=== PATIENT | male | born 1970 | race Hispanic/Latino ===

== ENCOUNTER 2022-02-16 15:06 | Emergency (ER) | payer SELFPAY ==
[2022-02-16] MEDS ORDERED: NA CHLORIDE 0.9% 1,000 ML ONE (15:30)
[2022-02-16] MEDS ORDERED: HYDROMORPHONE HCL 2 MG/ML inj ONE (15:30)
[2022-02-16] MEDS ORDERED: FAMOTIDINE 20 MG/2 ML VIAL IV ONE (15:30)
[2022-02-16] MEDS ORDERED: ONDANSETRON 4 MG/2 ML VIAL ONE (15:30)
[2022-02-16] MEDS ORDERED: PIPERACIL/TAZO 3.375 GM VIAL IV ONE (15:30)
[2022-02-16] MEDS ORDERED: NA CHLORIDE 0.9% 100 ML IV ONE (15:31)
[2022-02-16 15:45] LABS: Absolute Lymphocytes (CBC) 1.3 K/uL (0.7-4.9); Hematocrit 54.4 % (39.6-49.0); Lymphocytes % 22.5 % (15.3-44.8); MPV 8.7 fL (7.6-11.3); RBC Red Blood Cell Count 6.79 M/uL (4.33-5.43)
[2022-02-16 15:55] LABS: Albumin 3.6 g/dL (3.4-5.0); Bilirubin Total 0.5 mg/dL (0.2-1.0); Potassium 4.4 mmol/L (3.5-5.1); Protein, Total 7.5 g/dL (6.4-8.2)
--- NOTE | 2022-02-16 16:04 | RAD REPORT ---
EXAM DESCRIPTION: CT - Abdomen Pelvis Wo Contrast - 02/16/2022 3:48 pm CLINICAL HISTORY: Abdominal pain COMPARISON: None TECHNIQUE: Computed axial tomography of the abdomen and pelvis was obtained. IV and oral contrast we re not requested. All CT scans are performed using dose optimization technique as appropriate and may include automated exposure control or mA/KV adjustment according to patient size. FINDINGS: The evaluation of solid organs, vessels and bowel is limited secondary to the lack of con trast administration. The liver, spleen, pancreas, adrenals, bladder and kidneys appear grossly normal. The appendix is normal. There is no evidence of diverticulitis. A loop of small bowel enters a periumbilical hernia. There is mild to moderate dilatation of several loops of small bowel proximal to the hernia. Small bowel is decompressed distal to the hernia. The he rnia neck measures 16 millimeters IMPRESSION: Periumbilical hernia resulting in a partial small bowel obstruction
--- NOTE | 2022-02-16 16:07 | ER ---
Nurse's Notes [facility] Name: Carter Terrazas Age: 51 yrs Sex: Male : 1970 Arrival Date: 02/16/2022 Time: 15:07 Bed 2 Private MD: Diagnosis: Umbilical hernia without obstruction or gangrene-reduced Presentation: 02/16 15:10 Chief complaint: Chief complaint: EMS states: This morning pt was standing on a stool vg1 and the stool slipped from under pt and pt fell onto ABD against the truck tailgate; pt has a hx of umbilical hernia and ABD pain has become worse throughout the day. Pt states nausea. Coronavirus screen: Vaccine status: Patient reports being unvaccinated. Client denies travel out of the [place] in the last 14 days. Ebola Screen: Patient negative for fever greater than or equal to 101.5 degrees Fahrenheit, and additional compatible Ebola Virus Disease symptoms. Initial Sepsis Screen: Does the patient meet any 2 criteria? No. Patient's initial sepsis screen is negative. Does the patient have a suspected source of infection? No. Patient's initial sepsis screen is negative. Risk Assessment: Do you want to hurt yourself or someone else? Patient reports no desire to harm self or others. Onset of symptoms was February 16, 2022. 15:10 Method Of Arrival: EMS: [facility] vg1 15:10 Acuity: JENNYFER 3 vg1 Triage Assessment: 15:13 General: Appears uncomfortable, Behavior is calm, cooperative. Pain: Complains of pain vg1 in umbilical area, right lower quadrant and left lower quadrant Pain currently is 10 out of 10 on a pain scale. Pain began this morning. EENT: No signs and/or symptoms were reported regarding the EENT system. Neuro: Level of Consciousness is awake, alert, obeys commands, Oriented to person, place, time, situation. Cardiovascular: Patient's skin is warm and dry. Respiratory: Airway is patent Respiratory effort is even, unlabored. GI: Abdomen is round non-distended, Abdomen is tender to palpation in umbilical area, right lower quadrant and left lower quadrant Reports nausea. : No signs and/or symptoms were reported regarding the genitourinary system. Derm: Skin is intact, is healthy with good turgor. Musculoskeletal: Circulation, motion, and sensation intact. Historical: - Allergies: 15:13 Iodine; vg1 15:13 SHELLFISH; vg1 - Home Meds: 15:13 None [Active]; vg1 - PMHx: 15:13 Umbilical hernia; vg1 - PSHx: 15:13 Vasectomy; vg1 - Immunization history:: Client reports having NOT received the Covid vaccine. - Social history:: Smoking status: Patient denies any tobacco usage or history of. Screenin:15 Abuse screen: Denies threats or abuse. Nutritional screening: No deficits noted. vg1 Tuberculosis screening: No symptoms or risk factors identified. Fall Risk Fall in past 12 months (25 points). No secondary diagnosis (0 pts). IV access (20 points). Ambulatory Aid- None/Bed Rest/Nurse Assist (0 pts). Gait- Normal/Bed Rest/Wheelchair (0 pts) Mental Status- Oriented to own ability (0 pts). Total Valenzuela Fall Scale indicates No Risk (0-24 pts). Assessment: 15:15 Reassessment: SEE TRIAGE. vg1 16:15 Reassessment: Patient appears in no apparent distress at this time. Patient and/or vg1 family updated on plan of care and expected duration. Pain level reassessed. Patient is alert, oriented x 3, equal unlabored respirations, skin warm/dry/pink. Pt up for d/c; waiting for IV antibiotics to complete. Vital Signs: 15:10 BP 172 / 118; Pulse 98; Resp 20; Temp 98.1; Pulse Ox 100% ; Weight 127.01 kg; Height 6 vg1 ft. 1 in. (185.42 cm); Pain 10/10; 15:44 BP 162 / 107; Pulse 95; Resp 19; Pulse Ox 99% on R/A; vg1 15:10 Body Mass Index 36.94 (127.01 kg, 185.42 cm) vg1 ED Course: 15:07 Patient arrived in ED. ds1 15:07 Chinmay Cannon MD is Attending Physician. matias 15:09 Patient has correct armband on for positive identification. Bed in low position. Call mh5 light in reach. Side rails up X2. Warm blanket given. Pulse ox on. NIBP on. 15:10 Divya Muñoz RN is Primary Nurse. vg1 15:13 Triage completed. vg1 15:13 Arm band placed on. vg1 15:15 No provider procedures requiring assistance completed. vg1 15:30 Initial lab(s) drawn, by [facility], sent to lab. Inserted saline lock: 18 gauge in right mh5 antecubital area, using aseptic technique. Blood collected. 15:31 CBC with Diff Sent. 5 15:31 CMP Sent. [facility] 15:31 Lipase Sent. 5 15:50 CT Abd/Pelvis - Without Contrast In Process Unspecified. EDPR 16:05 Darren Christy MD is Referral Physician. matias 17:03 IV discontinued, intact, bleeding controlled, No redness/swelling at site. Pressure vg1 dressing applied. Administered Medications: 15:30 Drug: NS 0.9% 1000 ml Route: IV; Rate: 1 bolus; Site: right antecubital; vg1 17:02 Follow up: IV Status: Completed infusion; IV Intake: 1000ml vg1 15:30 Drug: Zofran (Ondansetron) 4 mg Route: IVP; Site: right antecubital; vg1 17:02 Follow up: Response: No adverse reaction; Marked relief of symptoms vg1 15:32 Drug: Pepcid (famotidine) 20 mg Route: IVP; Site: right antecubital; vg1 17:02 Follow up: Response: No adverse reaction vg1 15:34 Drug: Dilaudid (HYDROmorphone) 1 mg Route: IVP; Site: right antecubital; vg1 17:02 Follow up: Response: No adverse reaction; Marked relief of symptoms vg1 15:52 Drug: Dilaudid (HYDROmorphone) 1 mg Route: IVP; Site: right antecubital; vg1 17:02 Follow up: Response: No adverse reaction; Marked relief of symptoms vg1 15:55 Drug: Zosyn (piperacillin-tazobactam) 3.375 grams Route: IVPB; Infused Over: 60 mins; vg1 Site: right antecubital; 17:02 Follow up: IV Status: Completed infusion; IV Intake: 100ml vg1 Intake: 17:02 IV: 100ml; Total: 100ml. vg1 17:02 IV: 1000ml; Total: 1100ml. vg1 Outcome: 16:07 Discharge ordered by . matias 17:03 Discharged to home ambulatory. vg1 17:03 Condition: good 17:03 Discharge instructions given to patient, Instructed on discharge instructions, follow up and referral plans. Demonstrated understanding of instructions, follow-up care. 17:03 Patient left the ED. vg1 Signatures: Dispatcher [employer] Chinmay Light MD MD cha Sanford, Demi ds1 Aliyah Christy Divya Brunson, RN RN vg1 Corrections: (The following items were deleted from the chart) 15:14 15:13 Allergies: No Known Allergies; vg1 vg1 15:14 15:13 PMHx: None; vg1 vg1
--- NOTE | 2022-02-16 16:07 | EDPHYS ---
Physician Documentation [facility] Name: Carter Terrazas Age: 51 yrs Sex: Male : 1970 Arrival Date: 02/16/2022 Time: 15:07 Bed 2 Private MD: ED Physician Chinmay Cannon HPI: 02/16 15:19 This 51 yrs old Male presents to ER via EMS with complaints of Fall Injury. matias 15:19 Details of fall: The patient fell from a height, from a ladder, approximately 1 feet. matias Onset: The symptoms/episode began/occurred just prior to arrival. Associated injuries: The patient sustained injury to the abdomen, specifically the umbilical area. Severity of symptoms: At their worst the symptoms were moderate, in the emergency department the symptoms have resolved. The patient has not experienced similar symptoms in the past. Historical: - Allergies: 15:13 Iodine; vg1 15:13 SHELLFISH; vg1 - Home Meds: 15:13 None [Active]; vg1 - PMHx: 15:13 Umbilical hernia; vg1 - PSHx: 15:13 Vasectomy; vg1 - Immunization history:: Client reports having NOT received the Covid vaccine. - Social history:: Smoking status: Patient denies any tobacco usage or history of. ROS: 15:19 Constitutional: Negative for fever, chills, and weight loss, Eyes: Negative for injury, matias pain, redness, and discharge, ENT: Negative for injury, pain, and discharge, Neck: Negative for injury, pain, and swelling, Cardiovascular: Negative for chest pain, palpitations, and edema, Respiratory: Negative for shortness of breath, cough, wheezing, and pleuritic chest pain, Back: Negative for injury and pain, : Negative for injury, bleeding, discharge, and swelling, MS/Extremity: Negative for injury and deformity, Skin: Negative for injury, rash, and discoloration, Neuro: Negative for headache, weakness, numbness, tingling, and seizure, Psych: Negative for depression, anxiety, suicide ideation, homicidal ideation, and hallucinations, Allergy/Immunology: Negative for hives, rash, and allergies, Endocrine: Negative for neck swelling, polydipsia, polyuria, polyphagia, and marked weight changes, Hematologic/Lymphatic: Negative for swollen nodes, abnormal bleeding, and unusual bruising. 15:19 Abdomen/GI: Positive for abdominal pain, nausea and vomiting, of the umbilical area. Exam: 15:19 Constitutional: This is a well developed, well nourished patient who is awake, alert, matias and in no acute distress. Head/Face: Normocephalic, atraumatic. Eyes: Pupils equal round and reactive to light, extra-ocular motions intact. Lids and lashes normal. Conjunctiva and sclera are non-icteric and not injected. Cornea within normal limits. Periorbital areas with no swelling, redness, or edema. ENT: Nares patent. No nasal discharge, no septal abnormalities noted. Tympanic membranes are normal and external auditory canals are clear. Oropharynx with no redness, swelling, or masses, exudates, or evidence of obstruction, uvula midline. Mucous membranes moist. Neck: Trachea midline, no thyromegaly or masses palpated, and no cervical lymphadenopathy. Supple, full range of motion without nuchal rigidity, or vertebral point tenderness. No Meningismus. Chest/axilla: Normal chest wall appearance and motion. Nontender with no deformity. No lesions are appreciated. Cardiovascular: Regular rate and rhythm with a normal S1 and S2. No gallops, murmurs, or rubs. Normal PMI, no JVD. No pulse deficits. Respiratory: Lungs have equal breath sounds bilaterally, clear to auscultation and percussion. No rales, rhonchi or wheezes noted. No increased work of breathing, no retractions or nasal flaring. Back: No spinal tenderness. No costovertebral tenderness. Full range of motion. Male : Normal genitalia with no discharge or lesions. Skin: Warm, dry with normal turgor. Normal color with no rashes, no lesions, and no evidence of cellulitis. MS/ Extremity: Pulses equal, no cyanosis. Neurovascular intact. Full, normal range of motion. Neuro: Awake and alert, GCS 15, oriented to person, place, time, and situation. Cranial nerves II-XII grossly intact. Motor strength 5/5 in all extremities. Sensory grossly intact. Cerebellar exam normal. Normal gait. Psych: Awake, alert, with orientation to person, place and time. Behavior, mood, and affect are within normal limits. 15:19 Abdomen/GI: Inspection: abdomen appears normal, Bowel sounds: normal, Palpation: moderate abdominal tenderness, in the umbilical area, Liver: no appreciated palpable abnormalities, Hernia: noted in the umbilical area, incarceration, that is moderate, tenderness, that is moderate, that is severe, bowel sounds are appreciated on auscultation. Vital Signs: 15:10 BP 172 / 118; Pulse 98; Resp 20; Temp 98.1; Pulse Ox 100% ; Weight 127.01 kg; Height 6 vg1 ft. 1 in. (185.42 cm); Pain 10/10; 15:44 BP 162 / 107; Pulse 95; Resp 19; Pulse Ox 99% on R/A; vg1 15:10 Body Mass Index 36.94 (127.01 kg, 185.42 cm) vg1 MDM: 15:07 Patient medically screened. [facility] 15:21 Differential diagnosis: multiple trauma, sprain, strain. Differential diagnosis: bowel matias obstruction, diverticulitis, gastritis, non-specific abd pain. Data reviewed: vital signs, nurses notes, lab test result(s), radiologic studies, CT scan. Data interpreted: pvc monitor: rate is 98 beats/min, rhythm is regular, Pulse oximetry: on room air is 100 %. Test interpretation: by ED physician or midlevel provider:. Counseling: I had a detailed discussion with the patient and/or guardian regarding: the historical points, exam findings, and any diagnostic results supporting the discharge/admit diagnosis, lab results, radiology results. 02/16 15:18 Order name: CBC with Diff; Complete Time: 15:57 [facility] 02/16 15:18 Order name: CMP; Complete Time: 15:57 [facility] 02/16 15:18 Order name: Lipase; Complete Time: 15:57 [facility] 02/16 15:18 Order name: CT Abd/Pelvis - Without Contrast; Complete Time: 16:34 [facility] 02/16 15:18 Order name: IV Saline Lock; Complete Time: 15:31 [facility] 02/16 15:18 Order name: Labs collected and sent; Complete Time: 15:31 [facility] Administered Medications: 15:30 Drug: NS 0.9% 1000 ml Route: IV; Rate: 1 bolus; Site: right antecubital; vg1 17:02 Follow up: IV Status: Completed infusion; IV Intake: 1000ml vg1 15:30 Drug: Zofran (Ondansetron) 4 mg Route: IVP; Site: right antecubital; vg1 17:02 Follow up: Response: No adverse reaction; Marked relief of symptoms vg1 15:32 Drug: Pepcid (famotidine) 20 mg Route: IVP; Site: right antecubital; vg1 17:02 Follow up: Response: No adverse reaction vg1 15:34 Drug: Dilaudid (HYDROmorphone) 1 mg Route: IVP; Site: right antecubital; vg1 17:02 Follow up: Response: No adverse reaction; Marked relief of symptoms vg1 15:52 Drug: Dilaudid (HYDROmorphone) 1 mg Route: IVP; Site: right antecubital; vg1 17:02 Follow up: Response: No adverse reaction; Marked relief of symptoms vg1 15:55 Drug: Zosyn (piperacillin-tazobactam) 3.375 grams Route: IVPB; Infused Over: 60 mins; vg1 Site: right antecubital; 17:02 Follow up: IV Status: Completed infusion; IV Intake: 100ml vg1 Disposition Summary: 02/16/22 16:07 Discharge Ordered Location: Home matias Problem: new matias Symptoms: have improved matias Condition: Stable matias Diagnosis - Umbilical hernia without obstruction or gangrene - reduced matias Followup: matias - With: Darren Christy MD - When: 2 - 3 days - Reason: Recheck today's complaints, Continuance of care, Re-evaluation by your physician Discharge Instructions: - Discharge Summary Sheet matias - Hernia, Adult matias - Hernia, Adult, [id number] matias - Umbilical Hernia, Adult matias Forms: - Medication Reconciliation Form matias - Thank You Letter matias - Antibiotic Education matias - Prescription Opioid Use matias Signatures: Dispatcher [employer] Chinmay Light MD MD cha Garcia, Victoria, RN RN vg1 Corrections: (The following items were deleted from the chart) 15:14 15:13 Allergies: No Known Allergies; vg1 vg1 15:14 15:13 PMHx: None; vg1 vg1
[2022-02-16 17:11] VITALS: TEMP 98.1
[2022-02-16 17:13] VITALS: BP 162/107; O2SAT 99
== END 2022-02-16 17:03 | disposition home or self-care (01) ==
LOC: ER 15:06
DX: K42.9 Umbilical hernia without obstruction or gangrene (principal); R11.2 Nausea with vomiting, unspecified; W11.XXXA Fall on and from ladder, initial encounter; Z91.013 Allergy to seafood; Z91.048 Other nonmedicinal substance allergy status
CPT/HCPCS: 36415; 74176; 80053; 83690; 85025; 96365; 96375; 99284; J1170; J2405; J2543; J3490; J7030

== ENCOUNTER 2022-02-26 07:38 | Day surgery (SDC) | payer SELFPAY ==
[2022-02-26] MEDS ORDERED: CEFAZOLIN/SWI 2gm 2 GM/20 ML SYR ONE (07:57)
[2022-02-26] MEDS ORDERED: Ringers Lactate 1,000 ML IV ONE (07:57)
[2022-02-26] MEDS ORDERED: BUPIVACAINE 0.25% PF 10 ML VIAL IJ ONE ×2 (07:57)
[2022-02-26] MEDS ORDERED: propofoL 200 MG/20 ML VIAL IV ONE (08:18)
[2022-02-26] MEDS ORDERED: FENTANYL CITR 100 MCG/2 ML ONE ×2 (08:18→10:13)
[2022-02-26] MEDS ORDERED: MIDAZOLAM HCL 2 MG/2 ML INJ ONE (08:18)
[2022-02-26] MEDS ORDERED: ROCURONIUM 50 MG/5 ML VIAL IV ONE ×2 (08:18→09:58)
[2022-02-26] MEDS ORDERED: LIDOCAINE 1% MPF 5 ML VIAL ONE (08:18)
[2022-02-26] MEDS ORDERED: BUPIVACAINE 0.25% PF 10 ML VIAL ONE (08:23)
[2022-02-26] MEDS ORDERED: dexAMETHasone 10 MG/ML VIAL ONE (09:41)
[2022-02-26] MEDS ORDERED: KETOROLAC 30 MG/ML INJ ONE (09:41)
[2022-02-26] MEDS ORDERED: ONDANSETRON 4 MG/2 ML VIAL ONE (09:42)
[2022-02-26] MEDS ORDERED: NEOSTIGMINE 1 MG/ML -5 ML ONE (09:42)
[2022-02-26] MEDS ORDERED: GLYCOPYRROLATE 0.2 MG/ML SYR ONE ×2 (09:42→10:45)
[2022-02-26] MEDS ORDERED: EPHEDRINE SULF 50 MG/ML VIAL ONE (09:52)
[2022-02-26] MEDS ORDERED: NS 0.9% VIAL 10 ML ONE (09:52)
--- NOTE | 2022-02-26 10:40 | P.OP ---
Preoperative diagnosis: Incarcerated Umbilical Hernia Postoperative diagnosis: Incarcerated Umbilical Hernia Primary procedure: Laparoscopic Ventral Umbilical Hernia Repair with mesh Anesthesia: GETA + Local Estimated blood loss: <10cc Specimen: hernia contents Findings: Omentum and pre-peritoneal fat entrapped ~2cm defect Complications: None Implants: 11.4cm Round Ventralite ST mesh with echo, sorbafix tacks Transferred to: Recovery Room Condition: Good
[2022-02-26 12:38] VITALS: BP 117/67; TEMP 96.6; O2SAT 92
--- NOTE | 2022-02-26 22:40 | OP ---
Date of Procedure: 02/26/2022 Surgeon: Jose Armando Arora MD, Preoperative Diagnosis: Incarcerated umbilical hernia. Postoperative Diagnosis: Incarcerated umbilical hernia. Procedure Performed: Laparoscopic ventral hernia repair with mesh. Anesthesia: General endotracheal plus local with 0.25% Marcaine. Estimated Blood Loss: Less than 10 cc. Specimens: Hernia contents. Findings: Omentum and preperitoneal fat entrapped. There was approximately 2 cm hernia defect. Complications: None. Implants: 11.[address] mesh with Echo Positioning System made by [employer] and SorbaFix a bsorbable fixation tacks. Disposition: The patient transferred to recovery room in good condition. Procedure In Detail: After informed consent was obtained, the patient was brought to the operating r oom, prepped and draped in the usual sterile fashion. After adequate anesthesia was achieved and ane sthetized the area of the left upper quadrant, a stab incision and a 5 mm optical trocar was introduc ed in the abdomen without evidence of complication. Insufflation was obtained to 15 mmHg at this ciara e. There was no injury to vital structures upon entry into the abdomen. Additional trocar was chose n in the left lower quadrant. This was similarly anesthetized and sharply incised. A 12-mm trocar w as placed under direct visualization without evidence of complication. I then used ratcheted grasper s to grasp the patient's omentum. The omentum was trapped within the umbilical hernia. External and internal traction was applied. A LigaSure device was used to take down the hernia scar to allow for reduction of the omentum to the normal anatomic position. The omentum was returned to the normal an atomic position. I then palpated the hernia and found a significant amount of preperitoneal fat cont ained within. As such, I took the preperitoneal fat down circumferentially to offer an appropriate l anding zone on the posterior abdominal wall with the LigaSure device. Once the preperitoneal fat was removed in its entirety, it was placed in EndoCatch bag, removed the umbilical trocar, sent off as joelle estrada. I then took the 0 Endo stitch with V-Loc and closed the hernia defect, imbricating t he hernia sac in a running fashion with good approximation of the tissues. I then trimmed the V-Loc suture and removed it and was found to be intact on the back table. At this point, I sized the 11.[address] mesh with Echo Positioning System, brought it into the abdominal compartment, deployed it centrally in the periumbilical space after appropriately anesthetizing the skin, making a small stab incision and grabbing the deployment system with a Mannie-Karen suture passer. The ba lloon was then inflated and the system was deployed. The mesh was oriented appropriately even though it was circular. I then used the SorbaFix absorbable fixation tacks to secure a single crown at thi s point circumferentially around. The balloon deployment system was removed, found to be intact on t he back table and then I placed a double crown type orientation of tacks to the anterior abdominal wa ll. Approximately 50 tacks were used to secure the mesh to the anterior abdominal wall. I then insp ected for hemostasis. No hemostatic measures required. I then placed the patient right shoulder alexia n and head down, removed the 12-mm trocar, closed the 12-mm trocar site using a Mannie-Karen sutur e passer with 0 Vicryl in an interrupted fashion with good approximation of tissues. I then complete ly desufflated the abdomen under direct visualization without any evidence of complication, removed t he remaining trocar in the left lower quadrant. All skin incisions were then copiously irrigated and closed with a 4-0 Monocryl in a running fashion. Dermabond was placed over top. The patient tolera jose armando the procedure without any evidence of complication and transferred to PACU in good condition. Al l counts were correct at the end of the case. JERRY/MICHAEL Voice ID: [id number] Report ID: [id number]
== END 2022-02-26 12:23 | disposition home or self-care (01) ==
LOC: OR 07:38
PROVIDERS: ATTEND Surgery
PROC: 0WUF4JZ Supplement Abdominal Wall with Synthetic Substitute, Percutaneous Endoscopic Approach (ICD-10-PCS; principal; 2022-02-26 09:45)
DX: K42.9 Umbilical hernia without obstruction or gangrene (principal); Z91.09 Other allergy status, other than to drugs and biological substances
CPT/HCPCS: 88302; C1781; J0690; J1100; J2250; J2405; J2704; J2710; J3010; J7120

== ENCOUNTER 2025-03-10 22:53 | Emergency (ER) | payer SELFPAY ==
--- OUTSIDE RECORDS SUMMARY | 2025-03-10 22:56 | XMS REPORT | Continuity of Care Document ---
Author Name Unknown Address [address] [facility] [address] [place] [address] [facility] [place] Address [address] [facility] [address] [place] [address] Care Team Providers Care Property Condition Assessor Name Role Phone Sophie Desouza Primary Care Physician IAN BRONSON Attending Clinician Unavailable CHERI DAVISON Attending Clinician Unavailable [id number] Attending Clinician Unavailable Payers Payer Name Policy Type Policy Number Effective Date Expirati on Date Source [employer]ET[place] [place] [employer]: [facility] STANDARD 9 [id number] 2022 00:00:00 Problems Condition Name Condition Details Condition Category Status Onset Date Resolution Date Last Treatment Date Treating Clinician Comments Source Type 2 diabetes mellitus without complicati on, without long-term current use of insulin Type 2 diabetes mellitus without complicati on, without long-term current use of insulin Disease Active 11-15 00:00: 00 Margarito Seybold - Externa l Mixed hyperlipid emia Mixed hyperlipid emia Disease Active 11-15 00:00: 00 Margarito Seybold - Externa l No known active problems No known active problems Disease Margarito Seybold - Externa l Allergies, Adverse Reactions, Alerts Allergy Name Allergy Type Status Severity Reaction(s) Onset Date Inactive Date Treating Clinician Comments Source Iodine Propensi ty to adverse reaction s Active Anaphylaxis 11-29 00:00: 00 Margarito Seybold - Externa l Shellfis h Allergy Propensi ty to adverse reaction s Active Anaphylaxis 11-29 00:00: 00 Margarito Seybold - Externa l Codeine Propensi ty to adverse reaction s Active 2021-10 00:00: 00 Margarito thompson Iodine Propensi ty to adverse reaction to drug Active 2021-10 00:00: 00 Social History Social Habit Start Date Stop Date Quantity Comments Source Alcohol intake 2022-11-29 00:00:00 2022-11-29 00:00:00 Ex-drinker (finding) Margarito Duncan - External Tobacco use and exposure 2022-11-15 00:00:00 2022-11-15 00:00:00 Smokeless tobacco non-user Margarito Duncan - External Sex Assigned At 1970 00:00:00 1970 00:00:00 Margarito Duncan - External Smoking Status Start Date Stop Date Source Never smoked tobacco Margarito Duncan - External Medications Ordered Medication Name Filled Medication Name Start Date Stop Date Current Medication? Ordering Clinician Indication Dosage Frequency Signature (SIG) Comments Components Source TAKE 1 TABLET AT BEDTIME. 2021-10 00:00: 00 No TAKE 1 TABLET DAILY. 2021-10 00:00: 00 No Dose Unknown 2021-10 00:00: 00 No Lisinopril 20 MG oral Tablet 2021-10 00:00: 00 Yes 1{tbl} Take 1 tablet by mouth daily Margarito thompson Atorvastati n Calcium 20 MG oral Tablet 2021-10 00:00: 00 Yes 1{tbl} Take 1 tablet by mouth daily Margarito thompson Dose Unknown 2021-10 00:00: 00 No Dose Unknown 2021-10 00:00: 00 No Dose Unknown 2021-10 00:00: 00 No Metformin HCl ER 500 MG oral TABLET SR 24 HR 2021-10 00:00: 00 Yes 1{tbl} Take 1 tablet by mouth daily Margarito thompson TAKE 1 TABLET BY MOUTH EVERY 6 HOURS 2021-10 00:00: 00 No TAKE 1 TABLET BY MOUTH EVERY 6 HOURS 2021-10- 00:00: 00 No TAKE 1 TABLET BY MOUTH EVERY 6 HOURS 2021-10 00:00: 00 No TAKE 1 TABLET BY MOUTH EVERY 6 HOURS 2021-10 00:00: 00 No Vital Signs Vital Name Observation Time Observation Value Comments S ource Systolic blood pressure 2022-11-29 13:45:00 112 mm[Hg] Margarito Seybo ld - External Diastolic blood pressure 2022-11-29 13:45:00 78 mm[Hg] Margarito Seybo ld - External Heart rate 2022-11-29 13:45:00 87 /min Kelse y Seybold - External Body temperature 2022-11-29 13:45:00 35.56 Shara Margarito Seybold - External Respiratory rate 2022-11-29 13:45:00 16 /min Margarito Seybold - External Body height 2022-11-29 13:45:00 185.4 cm Yumiko ey Seybold - External Body weight 2022-11-29 13:45:00 122.925 kg Yumiko ey Seybold - External BMI 2022-11-29 13:45:00 35.75 kg/m2 Yumiko ey Seybold - External Systolic blood pressure 2022-11-15 14:10:00 130 mm[Hg] Margarito Seybo ld - External Diastolic blood pressure 2022-11-15 14:10:00 71 mm[Hg] Margarito Seybo ld - External Heart rate 2022-11-15 14:10:00 97 /min Kelse y Seybold - External Body temperature 2022-11-15 14:10:00 36.56 Shara Margarito Seybold - External Respiratory rate 2022-11-15 14:10:00 14 /min Margarito Seybold - External Body height 2022-11-15 14:10:00 185.4 cm Yumiko ey Seybold - External Body weight 2022-11-15 14:10:00 122.471 kg Yumiko ey Seybold - External BMI 2022-11-15 14:10:00 35.62 kg/m2 Yumiko ey Seybold - External Oxygen saturation in Arterial blood by Pulse oximetry 2022-11-15 14:10:00 99 /min Margarito Seybo ld - External BP Systolic 2022-10-11 09:43:00 123 mm[Hg] BP Diastolic 2022-10-11 09:43:00 81 mm[Hg] Weight Measured 2022-10-11 09:43:00 263.20 pounds Height Measured 2022-10-11 09:43:00 74.00 inches Body Temperature 2022-10-11 09:43:00 98.60 degrees Heart Rate 2022-10-11 09:43:00 100.00 /min Respiratory Rate 2022-10-11 09:43:00 BP Systolic 2022-10-11 09:33:00 123 mm[Hg] BP Diastolic 2022-10-11 09:33:00 81 mm[Hg] Weight Measured 2022-10-11 09:33:00 263.20 pounds Height Measured 2022-10-11 09:33:00 74.00 inches Body Temperature 2022-10-11 09:33:00 98.60 degrees Heart Rate 2022-10-11 09:33:00 100.00 /min Respiratory Rate 2022-10-11 09:33:00 BP Systolic 2022-09-14 16:43:00 102 mm[Hg] BP Diastolic 2022-09-14 16:43:00 62 mm[Hg] Weight Measured 2022-09-14 16:43:00 Height Measured 2022-09-14 16:43:00 Body Temperature 2022-09-14 16:43:00 Heart Rate 2022-09-14 16:43:00 70.00 /min Respiratory Rate 2022-09-14 16:43:00 18.00 /min BP Systolic 2022-09-13 14:33:00 142 mm[Hg] BP Diastolic 2022-09-13 14:33:00 94 mm[Hg] Weight Measured 2022-09-13 14:33:00 270.80 pounds Height Measured 2022-09-13 14:33:00 74.00 inches Body Temperature 2022-09-13 14:33:00 98.60 degrees Heart Rate 2022-09-13 14:33:00 75.00 /min Respiratory Rate 2022-09-13 14:33:00 18.00 /min BP Systolic 2022-08-24 10:03:00 127 mm[Hg] BP Diastolic 2022-08-24 10:03:00 76 mm[Hg] Weight Measured 2022-08-24 10:03:00 270.60 pounds Height Measured 2022-08-24 10:03:00 74.00 inches Body Temperature 2022-08-24 10:03:00 98.10 degrees Heart Rate 2022-08-24 10:03:00 85.00 /min Respiratory Rate 2022-08-24 10:03:00 Height Measured 2022-08-16 13:14:00 Body Temperature 2022-08-16 13:14:00 98.40 degrees Heart Rate 2022-08-16 13:14:00 82.00 /min Respiratory Rate 2022-08-16 13:14:00 19.00 /min BP Systolic 2022-08-16 13:14:00 137 mm[Hg] BP Diastolic 2022-08-16 13:14:00 81 mm[Hg] Weight Measured 2022-08-16 13:14:00 273.60 pounds Plan of Care Planned Activity Planned Date Details Comments Source Goal Plan of Care Note [code = 12466-0] Goal Plan of Care Note [code = 00220-7] Goal Plan of Care Note [code = 67358-6] Goal Plan of Care Note [code = 08085-8] Goal Plan of Care Note [code = 42210-9] Goal Plan of Care Note [code = 33485-2] Goal Plan of Care Note [code = 90850-4] Goal Plan of Care Note [code = 71316-0] Goal Plan of Care Note [code = 84189-3] Goal Plan of Care Note [code = 00637-9] Goal Plan of Care Note [code = 67050-6] Goal Plan of Care Note [code = 11520-1] Goal Plan of Care Note [code = 86265-6] Goal Plan of Care Note [code = 75837-7] Goal Plan of Care Note [code = 78223-8] Goal Plan of Care Note [code = 47755-8] Goal Plan of Care Note [code = 76174-9] Goal Plan of Care Note [code = 19879-4] Goal Plan of Care Note [code = 24878-5] Goal Plan of Care Note [code = 02599-5] Goal Plan of Care Note [code = 11834-9] Goal Plan of Care Note [code = 37284-3] Goal Plan of Care Note [code = 58985-2] Goal Plan of Care Note [code = 63295-1] Goal Plan of Care Note [code = 43972-8] Goal Plan of Care Note [code = 26645-2] Goal Plan of Care Note [code = 67342-1] Goal Plan of Care Note [code = 07529-5] Goal Plan of Care Note [code = 45974-2] Goal Plan of Care Note [code = 51217-7] Goal Plan of Care Note [code = 02435-5] Goal Plan of Care Note [code = 23749-9] Goal Plan of Care Note [code = 53079-5] Goal Plan of Care Note [code = 19768-1] Goal Plan of Care Note [code = 43475-5] Goal Plan of Care Note [code = 30552-6] Goal Plan of Care Note [code = 28932-1] Goal Plan of Care Note [code = 07735-8] Goal Plan of Care Note [code = 61603-0] Goal Plan of Care Note [code = 71014-1] Goal Plan of Care Note [code = 87915-4] Goal Plan of Care Note [code = 01745-0] Goal Plan of Care Note [code = 68517-5] Goal Plan of Care Note [code = 97622-9] Goal Plan of Care Note [code = 36295-7] Goal Plan of Care Note [code = 11478-0] Goal Plan of Care Note [code = 35049-2] Goal Plan of Care Note [code = 12972-8] Encounters Start Date/Time End Date/Time Encounter Type Admission Type Attending [facility] Care Department Encounter ID Source 2023-02-27 13:20:00 2023-02-27 13:20:00 Outpatient AIYANA IANDALE PIMENTEL [id number] Margarito Duncan 2023-02-26 08:00:00 2023-02-26 08:00:00 Outpatient CHERI DAVISON [id number] Margarito Duncan 2022-11-29 08:00:00 2022-11-29 08:00:00 Outpatient CHERI DAVISON [id number] Margarito Duncan 2022-11-20 00:00:00 2022-11-20 00:00:00 Outpatient CHERI DAVISON [id number] Margarito Duncan 2022-11-15 09:40:00 2022-11-15 09:40:00 Outpatient LAB90 MARGARITO PIMENTEL [id number] Margariot Duncan 2022-11-15 08:30:00 2022-11-15 08:30:00 Outpatient CHERI DAVISON [id number] Margarito Duncan 2022-11-15 00:00:00 2022-11-15 00:00:00 Outpatient CHERI DAVISON [id number] Margarito Duncan 2022-10-11 09:24:23 2022-10-11 09:24:23 Outpatient SFA SFA [id number] Óscar Méndez 2022-10-11 00:00:00 2022-10-11 00:00:00 Outpatient Visit [id number] 2022-09-14 16:39:42 2022-09-14 16:39:42 Outpatient SFA SFA [id number] Óscar Méndez 2022-09-13 14:28:36 2022-09-13 14:28:36 Outpatient SFA SFA [id number] Óscar Méndez 2022-09-13 00:00:00 2022-09-13 00:00:00 Outpatient Visit [id number] 2022-09-04 09:24:30 2022-09-04 09:24:30 Outpatient SFA SFA [id number] Óscar Méndez 2022-08-24 09:49:54 2022-08-24 09:49:54 Outpatient SFA SFA [id number] Óscar Méndez 2022-08-24 00:00:00 2022-08-24 00:00:00 Outpatient Visit [id number] 2022-08-16 13:09:00 2022-08-16 13:09:00 Outpatient SFA [facility] [id number] Óscar Méndez 2022-08-16 00:00:00 2022-08-16 00:00:00 Outpatient Visit [id number] Results Test Description Test Time Test Comments Results Result Co mments Source OCCULT BLD,FECAL,IMMUNOASSAY [id number] 00:00:00* Test Item Value Reference Range Interpretation Comme [facility] OCCULT BLD, FECAL (test code = 06565) NEGATIVE OCCULT BLD,FECAL,IMMUNOASSAY [id number] 00:00:00* Test Item Value Reference Range Interpretation Comme [facility] OCCULT BLD, FECAL (test code = 75512) NEGATIVE OCCULT BLD,FECAL,IMMUNOASSAY [id number] 00:00:00* Test Item Value Reference Range Interpretation Comme [facility] OCCULT BLD, FECAL (test code = 68705) NEGATIVE HEMOGLOBIN [id number] 07:12:23* Test Item Value Reference Range Interpretation Comme [facility] HEMOGLOBIN A1c (test code = 21131) 6.6 % 4.2-5.6 H POLISH DIABETE S ASSOCIATION GUIDELINES FOR HGB A1C: PREDIABETES/INCREASED RISK . . . . . . . 5.7-6.4% DIAGNOSIS OF DIABETES . . . . . . . . . >=6.5% WITH CONFIRMATION OR APPROPRIATE SYMPTOMS NOTE: ASSAY MAY BE AFFECTED BY HEMOGLOBINOPATHIES (SICKLE CELL ANEMIA, S-C DISEASE, OTHERS) OR ARTIFICIALLY LOWERED BY DECREASED RED CELL SURVIVAL (HEMOLYTIC ANEMIAS, BLOOD LOSS, ETC.). CONSIDER ALTERNATE TESTING OR LABORATORY CONSULTATION. VITAMIN D, 25 [id number] 06:52:28* Test Item Value Reference Range Interpretation Comme [facility] VITAMIN D, 25 OH (test code = 4958) 25 NG/ML SEE BELOW L NOTE: 25-HYDR OXYVITAMIN D ASSAY INCLUDES 25-HYDROXYVITAMIN D2 AND D3. METHODOLOGY IS CHEMILUMINESCENT IMMUNOASSAY. INTERPRETIVE RANGES PEDIATRIC (<17 YEARS) . . . . . . . . . . . NG/ML 20-100ADULT: INSUFFICIENT . . . . . . . . . . . . . . NG/ML <20 SUBOPTIMAL . . . . . . . . . . . . . . . NG/ML 20-29 OPTIMAL . . . . . . . . . . . . . . . . . NG/ML 30-100 CBC W/AUTO DIFF WITH [id number] 06:35:54* Test Item Value Reference Range Interpretation Comme nts WBC (test code = 1001) 6.7 K/UL 3.5-11.0 RBC (test code = 1002) 7.10 M/UL 4.50-6.10 H HEMOGLOBIN (test code = 1003) 19.6 G/DL 13.5-17.0 H HEMATOCRIT (test code = 1004) 56.3 % 40.0-51.0 H MCV (test code = 1005) 79.3 fL 80.0-99.0 L MCH (test code = 1006) 27.6 PG 25.0-33.0 MCHC (test code = 1007) 34.8 G/DL 31.0-36.0 RDW (test code = 1038) 16.9 % 11.5-15.0 H NEUTROPHILS (test code = 1008) 57.6 % LYMPHOCYTES (test code = 1010) 25.2 % MONOCYTES (test code = 1011) 12.4 % EOSINOPHILS (test code = 1012) 1.6 % BASOPHILS (test code = 1013) 0.7 % IMMATURE GRANULOCYTES (test code = 1036) 2.5 % NUCLEATED RBCS (test code = 1065) 0.0 /100 WBC'S See_Comment [Automated messa ge] The system which generated this result transmitted reference range: 0.0. The reference range was not used to interpret this result as normal/abnormal. PLATELET COUNT (test code = 1015) 230 K/UL 130-400 ABSOLUTE NEUTROPHILS (test code = 1066) 3.83 K/UL 1.50-7.50 ABSOLUTE LYMPHOCYTES (test code = 1067) 1.68 K/UL 1.00-4.00 ABSOLUTE MONOCYTES (test code = 1068) 0.83 K/UL 0.20-1.00 ABSOLUTE EOSINOPHILS (test code = 1040) 0.11 K/UL 0.00-0.50 ABSOLUTE BASOPHILS (test code = 1069) 0.05 K/UL 0.00-0.20 ABS IMMATURE GRANULOCYTES (test code = 1020) 0.17 K/UL 0.00-0.10 H ABS NUCLEATED RBCS (test code = 33581) 0.00 K/UL 0.00-0.11 LIPID [id number] 05:38:57* Test Item Value Reference Range Interpretation Comme nts CHOLESTEROL (test code = 2210) 214 MG/DL <200 H TRIGLYCERIDES (test code = 2232) 263 MG/DL <150 H HDL CHOLESTEROL (test code = 2220) 21 MG/DL >39 L CALC LDL CHOL (test code = 2237) 150 MG/DL <100 H NOTE: CALCULATED LDL IS BASED ON DILEEP-BAH METHOD WHICHINCLUDES ADJUSTABLE TRIGLYCERIDE:VLDL CHOLESTEROL RATIO.THIS FACTOR VARIES BY MEASURED TRIGLYCERIDE AND NON-HDLCHOLESTEROL CONCENTRATIONS WITH INCREASED CALCULATED LDL SEENIN HIGHER TRIGLYCERIDE OR LOWER NON-HDL SPECIMENS. FOR MOREINFORMATION, SEE CLIENT ANNOUNCEMENT AT [email or web address] RISK RATIO LDL/HDL (test code = 2238) 7.14 RATIO <3.55 H COMPREHENSIVE METABOLIC [id number] 05:38:57* Test Item Value Reference Range Interpretation Comme nts GLUCOSE (test code = 2217) 83 MG/DL 70-99 BUN (test code = 2208) 14 MG/DL 6-20 CREATININE (test code = 2214) 1.02 MG/DL 0.80-1.40 eGFR (2020 CKD-EPI) (test code = 47009) 89 ML/MIN/1.73 >60 CALC BUN/CREAT (test code = 2235) 14 RATIO 6-28 SODIUM (test code = 223) 142 MEQ/L 133-146 POTASSIUM (test code = 2228) 5.0 MEQ/L 3.5-5.4 CHLORIDE (test code = 2215) 99 MEQ/L 95-107 CARBON DIOXIDE (test code = 2205) 25 MEQ/L 19-31 CALCIUM (test code = 2208) 9.3 MG/DL 8.5-10.5 PROTEIN, TOTAL (test code = 222) 7.4 G/DL 6.1-8.3 ALBUMIN (test code = 2201) 4.4 G/DL 3.5-5.2 CALC GLOBULIN (test code = 2240) 3.0 G/DL 1.9-3.7 CALC A/G RATIO (test code = 2234) 1.5 RATIO 1.0-2.6 BILIRUBIN, TOTAL (test code = 2207) 0.7 MG/DL See_Comment [Automated me ssage] The system which generated this result transmitted reference range: <=1.2. The reference range was not used to interpret this result as normal/abnormal. ALKALINE PHOSPHATASE (test code = 2204) 54 U/L 40-121 AST (test code = 2218) 32 U/L 9-50 ALT (test code = 2219) 32 U/L 5-50 [id number] 04:09:31* Test Item Value Reference Range Interpretation Comme nts NT-proBNP (test code = 16854) <50 PG/ML SEE BELOW If NT-ProBNP is less than 300 PG/ML, heart failure is unlikely for allages. Age.................Heart Failure Likely <50 Years...........>=450 PG/ML 50-75 Years.........>=900 PG/ML > 75 Years..........>=1800 PG/ML Methodology: bounce.io Lesley Electrochemiluminescense Immunoassay UNLESS OTHERWISE INDICATED, ALL TESTING PERFORMED [facility] [address] [place] [address] COUNTY DIRECTOR: CHANEL VASQUEZ M.D. CLIA NUMBER [id number] [facility] [place]. [id number] HEMOGLOBIN [id number] 00:00:00* Test Item Value Reference Range Interpretation Comme nts HEMOGLOBIN A1c (test code = 47474) 6.6 % LIPID [id number] 00:00:00* Test Item Value Reference Range Interpretation Comme nts CHOLESTEROL (test code = 2210) 214 MG/DL TRIGLYCERIDES (test code = 2232) 263 MG/DL HDL CHOLESTEROL (test code = 2220) 21 MG/DL CALC LDL CHOL (test code = 2237) 150 MG/DL RISK RATIO LDL/HDL (test cod e = 2238) 7.14 RATIO COMPREHENSIVE METABOLIC [id number] 00:00:00* Test Item Value Reference Range Interpretation Comme nts GLUCOSE (test code = 2217) 83 MG/DL BUN (test code = 2208) 14 MG/DL CREATININE (test code = 2214) 1.02 MG/DL eGFR (2020 CKD-EPI) (test co de = 79514) 89 ML/MIN/1.73 CALC BUN/CREAT (test code = 2235) 14 RATIO SODIUM (test code = 2231) 142 MEQ/L POTASSIUM (test code = 2228) 5.0 MEQ/L CHLORIDE (test code = 2215) 99 MEQ/L CARBON DIOXIDE (test code = 2206) 25 MEQ/L CALCIUM (test code = 2209) 9.3 MG/DL PROTEIN, TOTAL (test code = 2229) 7.4 G/DL ALBUMIN (test code = 2201) 4.4 G/DL CALC GLOBULIN (test code = 2240) 3.0 G/DL CALC A/G RATIO (test code = 2234) 1.5 RATIO BILIRUBIN, TOTAL (test code = 2207) 0.7 MG/DL ALKALINE PHOSPHATASE (test code = 2204) 54 U/L AST (test code = 2218) 32 U/L ALT (test code = 2219) 32 U/L CBC W/AUTO [id number] 00:00:00* Test Item Value Reference Range Interpretation Comme nts WBC (test code = 1001) 6.7 K/UL RBC (test code = 1002) 7.10 M/UL HEMOGLOBIN (test code = 1003) 19.6 G/DL HEMATOCRIT (test code = 1004) 56.3 % MCV (test code = 1005) 79.3 fL MCH (test code = 1006) 27.6 PG MCHC (test code = 1007) 34.8 G/DL RDW (test code = 1038) 16.9 % NEUTROPHILS (test code = 1008) 57.6 % LYMPHOCYTES (test code = 1010) 25.2 % MONOCYTES (test code = 1011) 12.4 % EOSINOPHILS (test code = 1012) 1.6 % BASOPHILS (test code = 1013) 0.7 % IMMATURE GRANULOCYTES (test code = 1036) 2.5 % NUCLEATED RBCS (test code = 1065) 0.0 /100WBC'S PLATELET COUNT (test code = 1015) 230 K/UL ABSOLUTE NEUTROPHILS (test c ode = 1066) 3.83 K/UL ABSOLUTE LYMPHOCYTES (test c ode = 1067) 1.68 K/UL ABSOLUTE MONOCYTES (test cod e = 1068) 0.83 K/UL ABSOLUTE EOSINOPHILS (test c ode = 1040) 0.11 K/UL ABSOLUTE BASOPHILS (test cod e = 1069) 0.05 K/UL ABS IMMATURE GRANULOCYTES (t est code = 1020) 0.17 K/UL ABS NUCLEATED RBCS (test cod e = 90764) 0.00 K/UL VITAMIN D, 25 [id number] 00:00:00* Test Item Value Reference Range Interpretation Comme nts VITAMIN D, 25 OH (test code = 4958) 25 NG/ML [id number] 00:00:00* Test Item Value Reference Range Interpretation Comme nts NT-proBNP (test code = 46021) <50 PG/ML HEMOGLOBIN [id number] 00:00:00* Test Item Value Reference Range Interpretation Comme nts HEMOGLOBIN A1c (test code = 80164) 6.6 % LIPID [id number] 00:00:00* Test Item Value Reference Range Interpretation Comme nts CHOLESTEROL (test code = 2210) 214 MG/DL TRIGLYCERIDES (test code = 2232) 263 MG/DL HDL CHOLESTEROL (test code = 2220) 21 MG/DL CALC LDL CHOL (test code = 2237) 150 MG/DL RISK RATIO LDL/HDL (test cod e = 2238) 7.14 RATIO COMPREHENSIVE METABOLIC [id number] 00:00:00* Test Item Value Reference Range Interpretation Comme nts GLUCOSE (test code = 2217) 83 MG/DL BUN (test code = 2208) 14 MG/DL CREATININE (test code = 2214) 1.02 MG/DL eGFR (2020 CKD-EPI) (test co de = 27786) 89 ML/MIN/1.73 CALC BUN/CREAT (test code = 2235) 14 RATIO SODIUM (test code = 2231) 142 MEQ/L POTASSIUM (test code = 2228) 5.0 MEQ/L CHLORIDE (test code = 2215) 99 MEQ/L CARBON DIOXIDE (test code = 2206) 25 MEQ/L CALCIUM (test code = 2209) 9.3 MG/DL PROTEIN, TOTAL (test code = 2229) 7.4 G/DL ALBUMIN (test code = 2201) 4.4 G/DL CALC GLOBULIN (test code = 2240) 3.0 G/DL CALC A/G RATIO (test code = 2234) 1.5 RATIO BILIRUBIN, TOTAL (test code = 2207) 0.7 MG/DL ALKALINE PHOSPHATASE (test code = 2204) 54 U/L AST (test code = 2218) 32 U/L ALT (test code = 2219) 32 U/L CBC W/AUTO [id number] 00:00:00* Test Item Value Reference Range Interpretation Comme nts WBC (test code = 1001) 6.7 K/UL RBC (test code = 1002) 7.10 M/UL HEMOGLOBIN (test code = 1003) 19.6 G/DL HEMATOCRIT (test code = 1004) 56.3 % MCV (test code = 1005) 79.3 fL MCH (test code = 1006) 27.6 PG MCHC (test code = 1007) 34.8 G/DL RDW (test code = 1038) 16.9 % NEUTROPHILS (test code = 1008) 57.6 % LYMPHOCYTES (test code = 1010) 25.2 % MONOCYTES (test code = 1011) 12.4 % EOSINOPHILS (test code = 1012) 1.6 % BASOPHILS (test code = 1013) 0.7 % IMMATURE GRANULOCYTES (test code = 1036) 2.5 % NUCLEATED RBCS (test code = 1065) 0.0 /100WBC'S PLATELET COUNT (test code = 1015) 230 K/UL ABSOLUTE NEUTROPHILS (test c ode = 1066) 3.83 K/UL ABSOLUTE LYMPHOCYTES (test c ode = 1067) 1.68 K/UL ABSOLUTE MONOCYTES (test cod e = 1068) 0.83 K/UL ABSOLUTE EOSINOPHILS (test c ode = 1040) 0.11 K/UL ABSOLUTE BASOPHILS (test cod e = 1069) 0.05 K/UL ABS IMMATURE GRANULOCYTES (t est code = 1020) 0.17 K/UL ABS NUCLEATED RBCS (test cod e = 34429) 0.00 K/UL VITAMIN D, 25 [id number] 00:00:00* Test Item Value Reference Range Interpretation Comme nts VITAMIN D, 25 OH (test code = 4958) 25 NG/ML [id number] 00:00:00* Test Item Value Reference Range Interpretation Comme nts NT-proBNP (test code = 89704) <50 PG/ML HEMOGLOBIN [id number] 00:00:00* Test Item Value Reference Range Interpretation Comme nts HEMOGLOBIN A1c (test code = 89432) 6.6 % LIPID [id number] 00:00:00* Test Item Value Reference Range Interpretation Comme nts CHOLESTEROL (test code = 2210) 214 MG/DL TRIGLYCERIDES (test code = 2232) 263 MG/DL HDL CHOLESTEROL (test code = 2220) 21 MG/DL CALC LDL CHOL (test code = 2237) 150 MG/DL RISK RATIO LDL/HDL (test cod e = 2238) 7.14 RATIO COMPREHENSIVE METABOLIC [id number] 00:00:00* Test Item Value Reference Range Interpretation Comme nts GLUCOSE (test code = 2217) 83 MG/DL BUN (test code = 2208) 14 MG/DL CREATININE (test code = 2214) 1.02 MG/DL eGFR (2020 CKD-EPI) (test co de = 44538) 89 ML/MIN/1.73 CALC BUN/CREAT (test code = 2235) 14 RATIO SODIUM (test code = 2231) 142 MEQ/L POTASSIUM (test code = 2228) 5.0 MEQ/L CHLORIDE (test code = 2215) 99 MEQ/L CARBON DIOXIDE (test code = 2206) 25 MEQ/L CALCIUM (test code = 2209) 9.3 MG/DL PROTEIN, TOTAL (test code = 2229) 7.4 G/DL ALBUMIN (test code = 2201) 4.4 G/DL CALC GLOBULIN (test code = 2240) 3.0 G/DL CALC A/G RATIO (test code = 2234) 1.5 RATIO BILIRUBIN, TOTAL (test code = 2207) 0.7 MG/DL ALKALINE PHOSPHATASE (test code = 2204) 54 U/L AST (test code = 2218) 32 U/L ALT (test code = 2219) 32 U/L CBC W/AUTO [id number] 00:00:00* Test Item Value Reference Range Interpretation Comme nts WBC (test code = 1001) 6.7 K/UL RBC (test code = 1002) 7.10 M/UL HEMOGLOBIN (test code = 1003) 19.6 G/DL HEMATOCRIT (test code = 1004) 56.3 % MCV (test code = 1005) 79.3 fL MCH (test code = 1006) 27.6 PG MCHC (test code = 1007) 34.8 G/DL RDW (test code = 1038) 16.9 % NEUTROPHILS (test code = 1008) 57.6 % LYMPHOCYTES (test code = 1010) 25.2 % MONOCYTES (test code = 1011) 12.4 % EOSINOPHILS (test code = 1012) 1.6 % BASOPHILS (test code = 1013) 0.7 % IMMATURE GRANULOCYTES (test code = 1036) 2.5 % NUCLEATED RBCS (test code = 1065) 0.0 /100WBC'S PLATELET COUNT (test code = 1015) 230 K/UL ABSOLUTE NEUTROPHILS (test c ode = 1066) 3.83 K/UL ABSOLUTE LYMPHOCYTES (test c ode = 1067) 1.68 K/UL ABSOLUTE MONOCYTES (test cod e = 1068) 0.83 K/UL ABSOLUTE EOSINOPHILS (test c ode = 1040) 0.11 K/UL ABSOLUTE BASOPHILS (test cod e = 1069) 0.05 K/UL ABS IMMATURE GRANULOCYTES (t est code = 1020) 0.17 K/UL ABS NUCLEATED RBCS (test cod e = 31930) 0.00 K/UL VITAMIN D, 25 [id number] 00:00:00* Test Item Value Reference Range Interpretation Comme nts VITAMIN D, 25 OH (test code = 4958) 25 NG/ML [id number] 00:00:00* Test Item Value Reference Range Interpretation Comme nts NT-proBNP (test code = 70512) <50 PG/ML
[2025-03-11 00:06] LABS: Absolute Basophils 0.1 K/uL (0-0.5); Absolute Eosinophils 0.2 K/uL (0-0.5); Absolute Lymphocytes (CBC) 1.8 K/uL (0.7-4.9); Absolute Monocytes 1.1 K/uL (0.1-1.3); Hematocrit 54.5 % (39.6-49.0); Hemoglobin 18.6 g/dL (13.6-17.9); Lymphocytes % 22.1 % (15.3-44.8); MCH 26.8 pg (27.0-35.0); MCHC 34.1 g/dL (32.0-36.0); MCV 78.7 fL (80-100); MPV 8.5 fL (7.6-11.3); Monocytes % 13.1 % (3.3-12.3); Neutrophils % 61.8 % (41.7-73.7); Nucleated Red Blood Cells % 0.2 % (0-0); Platelets 195 thou/uL (152-406); RBC Red Blood Cell Count 6.92 M/uL (4.33-5.43); Red Cell Distribution Width 17.6 % (12.1-15.2)
[2025-03-11 00:07] LABS: PT Prothrombin Time 13.7 SECONDS (10-13.0); Protime INR 1.21
[2025-03-11 00:23] LABS: Albumin 3.3 g/dL (3.4-5.0); Albumin/Globulin Ratio 0.9 (1.1-1.8); Anion Gap 7.2 mEq/L (5.0-15.0); Bilirubin Direct 0.2 mg/dL (0-0.2); Bilirubin Indirect, Calculated 0.6 mg/dL (0.2-0.8); Bilirubin Total 0.8 mg/dL (0.2-1.0); Globulin 3.6 g/dL (2.3-3.5); Magnesium 2.2 mg/dL (1.6-2.4); Potassium 4.2 mEq/L (3.5-5.1); Protein, Total 6.9 g/dL (6.4-8.2); Troponin High Sensitivity 8.1 pg/mL (<58.9)
--- NOTE | 2025-03-11 00:34 | EDPHYS ---
Physician Documentation [facility] Name: Carter Terrazas Age: 54 yrs Sex: Male : 1970 Arrival Date: 03/10/2025 Time: 22:53 Bed 4 Private MD: ED Physician Jonatan Young HPI: 03/10 23:45 This 54 yrs old Male presents to ER via Ambulatory with complaints of sp3 Breathing Difficulty. 23:45 54-year-old male with history of diabetes, hypertension, prior obesity that presents to 3 the ED with chief complaint shortness of breath and anxiety type symptoms that are relieved by cold showers and/or cold beverage/water. Patient states these episodes have been occurring for over 7 days. He states that he was seen at the [facility] approximately 2 to 3 months ago and was prescribed medications for the above past medical history after which she decided to stop taking them after 1 week due to the advice of his feet and his who recommended natural therapy. He then went on a 1 meal a day diet and cut all carbohydrates and states he lost over 70 pounds and feels great. However over the last 7 days he has had these episodes as outlined above. He denies any chest pain, back pain, abdominal pain, nausea, vomiting, diarrhea, syncope, known sick contacts, travel history, fever, or any other signs or symptoms on ROS at this time. He denies cough, upper respiratory symptoms, production on the cough, and any other respiratory symptoms.. Historical: - Allergies: 23:26 Iodine; lg3 23:26 SHELLFISH; lg3 - Home Meds: 23:26 None [Active]; lg3 - PMHx: 23:26 Umbilical hernia; Diabetes mellitus; CVA; lg3 - PSHx: 23:26 Vasectomy; umbilical hernia (Vasectomy); lg3 - Immunization history:: Adult Immunizations up to date. - Infectious Disease History:: Denies. - Social history:: Smoking status: Patient denies any tobacco usage or history of. Patient/guardian denies using alcohol, street drugs. ROS: 23:50 Constitutional: Negative for fever, chills, and weight loss, Eyes: Negative for injury, sp3 pain, redness, and discharge, ENT: Negative for injury, pain, and discharge, Neck: Negative for injury, pain, and swelling, Cardiovascular: Negative for chest pain, palpitations, and edema, Abdomen/GI: Negative for abdominal pain, nausea, vomiting, diarrhea, and constipation, Back: Negative for injury and pain, MS/Extremity: Negative for injury and deformity, Skin: Negative for injury, rash, and discoloration, Neuro: Negative for headache, weakness, numbness, tingling, and seizure, Psych: Negative for depression, anxiety, suicide ideation, homicidal ideation, and hallucinations, Allergy/Immunology: Negative for hives, rash, and allergies, Endocrine: Negative for neck swelling, polydipsia, polyuria, polyphagia, and marked weight changes, Hematologic/Lymphatic: Negative for swollen nodes, abnormal bleeding, and unusual bruising, 23:50 All other systems are negative, Exam: 23:51 Constitutional: This is a well developed, well nourished patient who is awake, alert, sp3 and in no acute distress. Head/Face: Normocephalic, atraumatic. Eyes: Pupils equal round and reactive to light, extra-ocular motions intact. Lids and lashes normal. Conjunctiva and sclera are non-icteric and not injected. Cornea within normal limits. Periorbital areas with no swelling, redness, or edema. Neck: Trachea midline, no thyromegaly or masses palpated, and no cervical lymphadenopathy. Supple, full range of motion without nuchal rigidity, or vertebral point tenderness. No Meningismus. Chest/axilla: Normal chest wall appearance and motion. Nontender with no deformity. No lesions are appreciated. Cardiovascular: Regular rate and rhythm with a normal S1 and S2. No gallops, murmurs, or rubs. Normal PMI, no JVD. No pulse deficits. Respiratory: Lungs have equal breath sounds bilaterally, clear to auscultation and percussion. No rales, rhonchi or wheezes noted. No increased work of breathing, no retractions or nasal flaring. Abdomen/GI: Soft, non-tender, with normal bowel sounds. No distension or tympany. No guarding or rebound. No evidence of tenderness throughout. Back: No spinal tenderness. No costovertebral tenderness. Full range of motion. Skin: Warm, dry with normal turgor. Normal color with no rashes, no lesions, and no evidence of cellulitis. MS/ Extremity: Pulses equal, no cyanosis. Neurovascular intact. Full, normal range of motion. Neuro: Awake and alert, GCS 15, oriented to person, place, time, and situation. Cranial nerves II-XII grossly intact. Motor strength 5/5 in all extremities. Sensory grossly intact. Cerebellar exam normal. Normal gait. Psych: Awake, alert, with orientation to person, place and time. Behavior, mood, and affect are within normal limits. 23:51 ECG was reviewed by the Attending Physician. EKG demonstrates normal sinus rhythm at 81 bpm with normal intervals, normal QRS, normal axis, nonspecific ST/T changes without evidence of acute ischemia. Vital Signs: 23:23 BP 126 / 75; Pulse 82; Resp 16 S; Pulse Ox 98% on R/A; Weight 108.86 kg (R); Height 6 lg3 ft. 1 in. (R); 23:48 BP 134 / 79; Pulse 82; Resp 18; Pulse Ox 97% on R/A; kd3 03/11 00:12 BP 123 / 89; Pulse 78; Resp 16; Pulse Ox 94% on R/A; kd3 00:31 BP 120 / 87; Pulse 77; Resp 20; Pulse Ox 95% on R/A; kd3 03/10 23:23 Body Mass Index 31.66 (108.86 kg, 185.42 cm) lg3 MDM: 03/10 23:38 Medical Screening Exam initiated sp3 03/11 00:00 Data reviewed: vital signs, nurses notes, lab test result(s), EKG, radiologic studies. 3 ED course: 54-year-old male with shortness of breath over the last 7+ days. Differential diagnosis includes anxiety, other pulmonary process, CHF, ACS, electrolyte abnormality, viral illness, among others. I believe the leading diagnosis is anxiety given length of symptoms. Workup will include chest x-ray, EKG and general labs. If workup negative we will safely discharge patient home. Clinically I am not highly suspicious of PE, TAD, sepsis, shock or any other critical process.. 00:32 ED course: Full workup negative. We will safely discharge patient home at this time. sp3 Will give Xanax prior to discharge p.o.. 03/10 23:40 Order name: Basic Metabolic Panel; Complete Time: 00:32 3 03/10 23:40 Order name: CBC with Diff; Complete Time: 00:32 3 03/10 23:40 Order name: LFT's; Complete Time: 00:32 sp3 03/10 23:40 Order name: Magnesium; Complete Time: 00:32 3 03/10 23:40 Order name: NT PRO-BNP; Complete Time: 00:32 sp3 03/10 23:40 Order name: PT-INR; Complete Time: 00:32 3 03/10 23:40 Order name: Troponin HS; Complete Time: 00:32 3 03/10 23:40 Order name: XRAY Chest (1 view) 3 03/10 23:40 Order name: Cardiac monitoring; Complete Time: 23:49 3 03/10 23:40 Order name: EKG - Nurse/Tech; Complete Time: 23:49 3 03/10 23:40 Order name: IV Saline Lock; Complete Time: 23:54 3 03/10 23:40 Order name: Labs collected and sent; Complete Time: 23:54 3 03/10 23:40 Order name: O2 Per Protocol; Complete Time: 23:49 3 03/10 23:40 Order name: O2 Sat Monitoring; Complete Time: 23:49 sp3 Administered Medications: 00:41 Drug: ALPRAZolam PO Tablet 0.5 mg PO once Route: PO; kd3 Disposition Summary: 03/11/25 00:33 Discharge Ordered Notes: Location: Home sp3 Condition: Stable sp3 Diagnosis - Anxiety, difficulty breathing resolved sp3 Followup: sp3 - With: Private Physician - When: Upon discharge from the Emergency Department - Reason: Continuance of care Discharge Instructions: - Discharge Summary Sheet sp3 - Shortness of Breath, Adult sp3 - Managing Anxiety, Adult sp3 Forms: - Medication Reconciliation Form sp3 - Antibiotic Education sp3 - Prescription Opioid Use sp3 - Patient Portal Instructions sp3 - Leadership Thank You Letter sp3 Signatures: Dispatcher [employer] EDMS Milena Gamez RN RN lg3 Jonatan Young MD MD sp3 Vikki Darnell RN RN kd3 Corrections: (The following items were deleted from the chart) 03/10 23:40 23:40 BASIC METABOLIC PANEL+C.LAB.BRZ ordered. EDMS EDMS 23:40 23:40 CBC+H.LAB.BRZ ordered. EDMS EDMS 23:40 23:40 HEPATIC FUNCTION+C.LAB.BRZ ordered. EDMS EDMS 23:40 23:40 MAGNESIUM+C.LAB.BRZ ordered. EDMS EDMS 23:40 23:40 PROBNP+C.LAB.BRZ ordered. EDMS EDMS 23:40 23:40 PROTIME (+INR)+COAG.LAB.BRZ ordered. EDMS EDMS 23:40 23:40 Troponin High Sensitivity+C.LAB.BRZ ordered. EDMS EDMS 23:40 23:40 Chest Single View+RAD.RAD.BRZ ordered. EDMS EDMS
--- NOTE | 2025-03-11 00:34 | ER ---
Nurse's Notes [facility] Name: Carter Terrazas Age: 54 yrs Sex: Male : 1970 Arrival Date: 03/10/2025 Time: 22:53 Bed 4 Private MD: Diagnosis: Anxiety, difficulty breathing resolved Presentation: 03/10 23:23 Chief complaint: Patient states: SOB and cest tightness X1 week. worse at night. lg3 Coronavirus screen: Client denies travel out of the [place] in the last 14 days. At this time, the client does not indicate any symptoms associated with coronavirus-19. Ebola Screen: No symptoms or risks identified at this time. Initial Sepsis Screen: Does the patient meet any 2 criteria? No. Patient's initial sepsis screen is negative. Does the patient have a suspected source of infection? No. Patient's initial sepsis screen is negative. Risk Assessment: Do you want to hurt yourself or someone else? Patient reports no desire to harm self or others. Onset of symptoms is unknown. 23:23 Method Of Arrival: Ambulatory lg3 23:23 Acuity: JENNYFER 3 lg3 Triage Assessment: 23:26 General: Appears in no apparent distress. uncomfortable, Behavior is calm, cooperative, lg3 anxious. Pain: Complains of pain in chest Quality of pain is described as pressure. EENT: No deficits noted. No signs and/or symptoms were reported regarding the EENT system. Neuro: No deficits noted. Coe Agitation-Sedation Scale (RASS): 0 - Alert and Calm Level of Consciousness is awake, alert, obeys commands, Oriented to person, place, time, situation. Cardiovascular: No deficits noted. Reports chest pain, shortness of breath, Heart tones S1 S2. Respiratory: No deficits noted. Reports shortness of breath at rest Airway is patent Respiratory effort is even, unlabored, Respiratory pattern is regular, symmetrical, Breath sounds are clear bilaterally. Onset: The symptoms/episode began/occurred at an unknown time. the patient has mild shortness of breath. GI: No deficits noted. No signs and/or symptoms were reported involving the gastrointestinal system. : No signs and/or symptoms were reported regarding the genitourinary system. Derm: No deficits noted. No signs and/or symptoms reported regarding the dermatologic system. Skin is intact, is healthy with good turgor, Skin is dry, Skin is normal, Skin temperature is warm. Musculoskeletal: No deficits noted. No signs and/or symptoms reported regarding the musculoskeletal system. Circulation, motion, and sensation intact. Range of motion: intact in all extremities. Historical: - Allergies: 23:26 Iodine; lg3 23:26 SHELLFISH; lg3 - Home Meds: 23:26 None [Active]; lg3 - PMHx: 23:26 Umbilical hernia; Diabetes mellitus; CVA; lg3 - PSHx: 23:26 Vasectomy; umbilical hernia (Vasectomy); lg3 - Immunization history:: Adult Immunizations up to date. - Infectious Disease History:: Denies. - Social history:: Smoking status: Patient denies any tobacco usage or history of. Patient/guardian denies using alcohol, street drugs. Screenin:48 [facility] ED Fall Risk Assessment (Adult) History of falling in the last 3 months, kd3 including since admission No falls in past 3 months (0 pts) Confusion or Disorientation No (0 pts) Intoxicated or Sedated No (0 pts) Impaired Gait No (0 pts) Mobility Assist Device Used No (0 pt) Altered Elimination No (0 pt) Score/Fall Risk Level 0 - 2 = Low Risk Oriented to surroundings. Abuse screen: Denies threats or abuse. Denies injuries from another. Nutritional screening: No deficits noted. Tuberculosis screening: No symptoms or risk factors identified. Assessment: 23:48 General: Appears in no apparent distress. Behavior is calm, cooperative. Neuro: Level kd3 of Consciousness is awake, alert, obeys commands, Oriented to person, place, time, situation. Cardiovascular: Rhythm is regular. Respiratory: Airway is patent Trachea midline Respiratory effort is even, unlabored, Respiratory pattern is regular, symmetrical. 03/11 00:17 General: Pt's o2 drops to the upper 80's while asleep . kd3 Vital Signs: 03/10 23:23 BP 126 / 75; Pulse 82; Resp 16 S; Pulse Ox 98% on R/A; Weight 108.86 kg (R); Height 6 lg3 ft. 1 in. (R); 23:48 BP 134 / 79; Pulse 82; Resp 18; Pulse Ox 97% on R/A; kd3 03/11 00:12 BP 123 / 89; Pulse 78; Resp 16; Pulse Ox 94% on R/A; kd3 00:31 BP 120 / 87; Pulse 77; Resp 20; Pulse Ox 95% on R/A; kd3 03/10 23:23 Body Mass Index 31.66 (108.86 kg, 185.42 cm) lg3 ED Course: 03/10 22:56 Patient arrived in ED. al6 23:08 Jonatan Young MD is Attending Physician. sp3 23:26 Triage completed. lg3 23:26 Arm band placed on right wrist. lg3 23:44 Nini Antonio, RN is Primary Nurse. km10 23:47 Primary Nurse role handed off by Nini Antonio RN kd3 23:47 Vikki Darnell RN is Primary Nurse. kd3 23:48 Patient has correct armband on for positive identification. Provided Education on: EKG, kd3 blood work . Client placed on continuous cardiac and pulse oximetry monitoring. NIBP monitoring applied. court monitor on. 23:54 Basic Metabolic Panel Sent. km10 23:54 CBC with Diff Sent. km10 23:54 LFT's Sent. km10 23:54 Magnesium Sent. km10 23:54 NT PRO-BNP Sent. km10 23:54 PT-INR Sent. km10 23:54 Troponin HS Sent. km10 23:54 Inserted saline lock: 18 gauge in right antecubital area, using aseptic technique. km10 23:59 XRAY Chest (1 view) In Process Unspecified. EDMS 03/11 00:41 No provider procedures requiring assistance completed. IV discontinued, intact, kd3 bleeding controlled, No redness/swelling at site. Pressure dressing applied. Administered Medications: 00:41 Drug: ALPRAZolam PO Tablet 0.5 mg PO once Route: PO; kd3 Medication: 03/10 23:48 VIS not applicable for this client. kd3 Outcome: 03/11 00:33 Discharge ordered by . sp3 00:41 Discharged to home ambulatory, kd3 00:41 Condition: stable 00:41 Discharge instructions given to patient, Instructed on discharge instructions, follow up and referral plans. Demonstrated understanding of instructions, follow-up care, 00:42 Patient left the ED. kd3 Signatures: Dispatcher [employer] EDMS Milena Gamez RN RN 3 Jonatan Young MD MD sp3 Vikki Darnell RN RN kd3 Jennifer Samano al6 Nini Antonio, RN RN km10
[2025-03-11] MEDS ORDERED: ALPRAZOLAM 0.5 MG TABLET ONE (00:36)
[2025-03-11 02:30] VITALS: BP 120/87; O2SAT 95
--- NOTE | 2025-03-11 06:06 | RAD REPORT ---
EXAM: XR Chest, 1 View CLINICAL HISTORY: The patient is 54 years old and is Male; CHEST PAIN TECHNIQUE: Frontal view of the chest. COMPARISON: No relevant prior studies available. FINDINGS: LUNGS: Unremarkable. No consolidation. PLEURAL SPACE: Unremarkable. No pneumothorax. HEART: Unremarkable. No cardiomegaly. MEDIASTINUM: Unremarkable. Normal mediastinal contour. BONES/JOINTS: Unremarkable. No acute fracture. UPPER ABDOMEN: Unremarkable as visualized. IMPRESSION: No acute cardiopulmonary process. Electronically signed by: Claudia Soria MD 03/11/2025 12:13 AM CDT RP Due to temporary technical issues with the [employer] reporting system, reports are being marah d by the in-house radiologist without review as a courtesy to ensure prompt reporting the interpreting radiologist is fully responsible for the content of the report. Transcribed Date/Time: 03/11/2025 6:06 AM
--- NOTE | 2025-03-15 16:58 | EKG ---
Test Date: 2025-03-10 Test Time: 23:32:35 [employer]: LEONOR MEASUREMENT RESULTS: Intervals: Rate: 81 DE: 164 QRSD: 98 QT: 348 QTc: 404 Clay: P: 71 DE: 164 QRS: 78 T: 40 INTERPRETIVE STATEMENTS: Normal sinus rhythm Possible Left atrial enlargement Borderline ECG Compared to ECG 11/05/2001 19:44:00 Sinus arrhythmia no longer present Electronically Signed On 03-15-25 16:51:43 CDT by Chuy Hernandes
== END 2025-03-11 00:42 | disposition home or self-care (01) ==
LOC: ER 22:53
DX: F41.9 Anxiety disorder, unspecified (principal)
CPT/HCPCS: 36415; 71045; 80048; 80076; 83735; 83880; 84484; 85025; 85610; 93005; 99284